=== PATIENT | female | born 1965 | race Caucasian/White ===

== ENCOUNTER 2019-10-18 15:42 | Outpatient (CLI) | payer BC ==
--- NOTE | 2019-10-18 16:15 | RAD ---
EXAM: RIGHT HIP TWO VIEWS: 10/18/19 HISTORY: Right hip pain with low back pain. FINDINGS: Minimal right hip joint osteoarthrosis. Minimal narrowing of the right hip joint. No acute fracture o r dislocation. IMPRESSION: Evidence for right hip joint arthrosis without fracture or dislocation. POS: OFF
--- NOTE | 2019-10-18 16:15 | RAD ---
EXAM: LEFT HIP TWO VIEWS: 10/18/19 HISTORY: Left hip pain. FINDINGS: Mild left hip joint arthrosis. No acute fracture or dislocation. IMPRESSION: Mild left hip joint arthrosis without fracture or dislocation. POS: OFF
== END 2019-10-18 15:43 | disposition home or self-care (01) ==
LOC: TBSIIMAG 15:42
PROVIDERS: ATTEND Surgery
DX: M25.559 Pain in unspecified hip (principal); M16.0 Bilateral primary osteoarthritis of hip